=== PATIENT | male | born 1960 | race Caucasian/White ===

== ENCOUNTER → 2016-11-10 | Outpatient (CLI) | payer BC ==
[~2016-11-10] MED LIST: UNABLE
[2016-11-10 11:19] LABS: CHOLESTEROL/HDL RATIO 4.5; PROSTATE SPECIFIC ANTIGEN 2.66 ng/ml (0.000-4.000)
== END | disposition home or self-care (01) ==
LOC: C.LABBC 07:38
PROVIDERS: ATTEND Family Medicine
DX: E78.00 Pure hypercholesterolemia, unspecified (principal); Z12.5 Encounter for screening for malignant neoplasm of prostate; D48.5 Neoplasm of uncertain behavior of skin